=== PATIENT | female | born 2000 | race Caucasian/White ===

== ENCOUNTER 2021-10-24 06:43 | Inpatient (IN) | payer BC ==
[2021-10-24 07:08] LABS: Hemoglobin 14.3 g/dL (12.0-16.0); Mean Corpuscular HGB CONC 34.4 g/dL (32.0-36.0); Mean Corpuscular Hemoglobin 30.8 pg (25.0-35.0); Mean Corpuscular Volume 89.5 fL (78.0-98.0); Mean Platelet Volume 9.7 fL (7.4-10.4); Platelet Count 280 thou/uL (130-400); RBC Distribution Width 11.8 % (11.5-14.5); Red Blood Cell (RBC) Count 4.65 mill/uL (4.00-5.20)
[2021-10-24 07:22] LABS: MDiff Complete? YES
[2021-10-24 07:23] LABS: Band 11 % (5-11); Burr Cells SLIGHT = 2-5 cells (100X) (0-1/hpf); Lymphocytes 4 % (28-48); Monocytes 3 % (0-4); Neutrophil 82 % (31-61); Ovalocytes SLIGHT = 2-5 cells (100X) (0-1/hpf); Platelet Morphology Comment Appears Adequate; Polychromasia SLIGHT = 2-3 cells (100X) (0-2/hpf)
[2021-10-24] MEDS ORDERED: Ondansetron PF 4 MG/2 ML Vial ONE ×2 (07:25→10:05)
[2021-10-24 07:50] LABS: ALT (SGPT) 14 U/L (8-55); AST (SGOT) 29 U/L (5-34); Albumin 4.3 g/dL (3.5-5.0); Alkaline Phosphatase 109 U/L (40-100); Anion Gap 27 mmol/L (10-20); BUN (Urea Nitrogen) 22 mg/dL (7.0-18.7); Bilirubin, Total 0.8 mg/dL (0.2-1.2); Calc. Creatinine Clearance 0 mL/min (70-130); Calcium 9.9 mg/dL (7.8-10.44); Chloride 101 mmol/L (98-107); Globulin 4.1 g/dL (2.4-3.5); Glucose 420 mg/dL (70-105); Potassium 5.9 mmol/L (3.5-5.1); Protein, Total 8.4 g/dL (6.0-8.3); Sodium 131 mmol/L (136-145)
[2021-10-24 07:53] LABS: Carbon Dioxide 9 mmol/L (22-29)
[2021-10-24 08:22] LABS: BHCG - Serum Negative (NEGATIVE); Pregs Control Background? CLEAR/WHITE (CLR/WHITE); Pregs Control Bar Appear? YES (CONTROL BAR)
[2021-10-24] MEDS ORDERED: INSULIN REGULAR IN 0.9 % NACL 100 UNIT/100 ML BAG ONE (08:33)
[2021-10-24] MEDS ORDERED: Insulin Regular 300 UNITS/3 ML VIAL ONE (08:33)
[2021-10-24 08:58] LABS: CK (CPK) 58 U/L (29-168); Lipase 9 U/L (8-78)
[2021-10-24 09:08] LABS: Bilirubin Negative (Negative); Blood, Urine Negative (Negative); Clarity Clear (Clear); Glucose, Urine (Dipstick) Greater than 1000 mg/dL (Negative); Ketone, Urine Greater than 150 mg/dL (Negative); Leukocyte Negative Leu/uL (Negative); Nitrite Negative (Negative); Protein, Urine (Dipstick) 10 mg/dL (Neg-Trace); Specific Gravity, Urine 1.025 (1.002-1.036); Urobilinogen Normal mg/dL (Less than 2)
[2021-10-24] MEDS ORDERED: Dextrose 5 %-0.45 % NaCl 1,000 ML IV PRN (09:38)
[2021-10-24] MEDS ORDERED: Electrolyte Replacement Protocol 1 EACH IVPB PRN (09:38)
[2021-10-24] MEDS ORDERED: Sodium Chloride 0.9% 1,000 ML IV PRN ×4 (09:38)
[2021-10-24] MEDS ORDERED: NS 0.9% w/ 20 MEQ KCL 1,000 ML IV PRN ×2 (09:38)
[2021-10-24] MEDS ORDERED: Ondansetron PF 4 MG/2 ML Vial IVP SCH (10:00)
[2021-10-24] MEDS ORDERED: Pantoprazole 40 MG VIAL IVP SCH (10:00)
[2021-10-24] MEDS ORDERED: Ondansetron PF 4 MG/2 ML Vial IVP PRN (10:04)
[2021-10-24] MEDS ORDERED: Acetaminophen 325 MG TAB PO PRN (10:04)
[2021-10-24] MEDS ORDERED: Ondansetron ODT 4 MG TAB PO PRN (10:04)
[2021-10-24] MEDS ORDERED: Acetaminophen 650 MG Suppository PR PRN (10:04)
[2021-10-24] MEDS ORDERED: Pantoprazole 40 MG VIAL ONE (10:05)
[2021-10-24 10:15] LABS: Analyzer IN Cardio ER; Base Excess -21.1 mEq/L (-2.0 to +3.0); Calcium, Ionized (venous) 1.15 mmol/L (1.16-1.32); Chloride (VBG) 106 mmol/L (98-106); Hemoglobin (Hb) 14.4 g/dL (11.7-15.5); Potassium (VBG) 4.54 mmol/L (3.70-5.30); Sodium 134.7 mmol/L (133-146)
[2021-10-24 10:17] LABS: Actual Bicarbonate (HCO3v) 6 mEq/L (22-28); pH (venous) 7.12 (7.32-7.43)
[2021-10-24 10:34] LABS: BUN (Urea Nitrogen) 22 mg/dL (7.0-18.7); Calc. Creatinine Clearance 0 mL/min (70-130); Calcium 9.2 mg/dL (7.8-10.44); Chloride 107 mmol/L (98-107); Glucose 322 mg/dL (70-105); Potassium 4.5 mmol/L (3.5-5.1); Sodium 134 mmol/L (136-145)
[2021-10-24 10:38] LABS: Carbon Dioxide Less than 8 mmol/L (22-29)
[2021-10-24 11:32] LABS: SARS-CoV-2 NAA Rapid Test Not Detected (NotDetected)
[2021-10-24 11:40] VITALS: BMI 27.8
[2021-10-24] MEDS ORDERED: FLU VACC QS2021-22(6MOS UP)/PF 60 MCG/0.5 ML SYRINGE IM ONE (12:15)
[2021-10-24] MEDS ORDERED: Magnesium 2 GM/50 ML 2 GM in Premix Bag 1 BAG IVPB SCH (13:00)
[2021-10-24] MEDS: Ampicillin/Sulbactam 3 GM in Sodium Chloride 0.9% 100 ML IVPB SCH ×2 (13:15→17:38)
[2021-10-24 14:35] LABS: Anion Gap 14 mmol/L (10-20); BUN (Urea Nitrogen) 20 mg/dL (7.0-18.7); Calc. Creatinine Clearance 88 mL/min (70-130); Calcium 8.7 mg/dL (7.8-10.44); Carbon Dioxide 13 mmol/L (22-29); Chloride 113 mmol/L (98-107); Glucose 136 mg/dL (70-105); Potassium 4.6 mmol/L (3.5-5.1); Sodium 135 mmol/L (136-145)
[2021-10-24] MEDS ORDERED: Calcium Carbonate 500 MG ChewTAB PO PRN (16:59)
[2021-10-24 17:59] LABS: Anion Gap 17 mmol/L (10-20); BUN (Urea Nitrogen) 18 mg/dL (7.0-18.7); Calc. Creatinine Clearance 89 mL/min (70-130); Calcium 8.4 mg/dL (7.8-10.44); Carbon Dioxide 12 mmol/L (22-29); Chloride 112 mmol/L (98-107); Glucose 148 mg/dL (70-105); Potassium 4.8 mmol/L (3.5-5.1); Sodium 136 mmol/L (136-145)
[2021-10-24] MEDS: D5 1/2 NS w/20 mEq KCL 1,000 ML IV PRN (20:59)
[2021-10-24] MEDS: HUMULIN R 100 UNITS in Sodium Chloride 0.9% 100 ML IVPB SCH (21:00)
[2021-10-24] MEDS ORDERED: Cepastat Lozenges 1 LOZ PO PRN (21:21)
[2021-10-24] MEDS ORDERED: Chloraseptic Spray 180 ml Bottle PO PRN (21:37)
[2021-10-25] MEDS: D5 1/2 NS w/20 mEq KCL 1,000 ML IV PRN ×3 (01:02→23:18)
[2021-10-25] MEDS: Ampicillin/Sulbactam 3 GM in Sodium Chloride 0.9% 100 ML IVPB SCH ×2 (01:02→05:37)
[2021-10-25 04:07] LABS: #Eosinphils 0.1 thou/uL (0.0-0.7); #Lymphocytes 2.2 thou/uL (1.20-3.40); #Monocytes 1.2 thou/uL (0.11-0.59); %Basophils 0.1 % (0.0-1.0); %Eosinophils 0.7 % (0.0-10.0); %Lymphocytes 15.3 % (28.0-48.0); %Monocytes 8.1 % (0.0-4.0); %Neutrophils 75.9 % (31.0-61.0); Mean Corpuscular HGB CONC 33.4 g/dL (32.0-36.0); Mean Corpuscular Hemoglobin 29.5 pg (25.0-35.0); Mean Corpuscular Volume 88.5 fL (78.0-98.0); Mean Platelet Volume 9.2 fL (7.4-10.4); Platelet Count 239 thou/uL (130-400); RBC Distribution Width 11.9 % (11.5-14.5); Red Blood Cell (RBC) Count 4.07 mill/uL (4.00-5.20); White Blood Cell (WBC) Count 14.5 thou/uL (4.8-10.8)
[2021-10-25 04:46] LABS: Anion Gap 10 mmol/L (10-20); BUN (Urea Nitrogen) 11 mg/dL (7.0-18.7); Calc. Creatinine Clearance 110 mL/min (70-130); Calcium 7.8 mg/dL (7.8-10.44); Carbon Dioxide 17 mmol/L (22-29); Chloride 112 mmol/L (98-107); Glucose 156 mg/dL (70-105); Potassium 3.8 mmol/L (3.5-5.1); Sodium 135 mmol/L (136-145)
[2021-10-26] MEDS: HUMULIN R 100 UNITS in Sodium Chloride 0.9% 100 ML IVPB SCH (01:30)
[2021-10-26] MEDS: D5 1/2 NS w/20 mEq KCL 1,000 ML IV PRN (03:30)
[2021-10-26 06:18] LABS: Anion Gap 10 mmol/L (10-20); BUN (Urea Nitrogen) 4 mg/dL (7.0-18.7); Calc. Creatinine Clearance 131 mL/min (70-130); Calcium 7.9 mg/dL (7.8-10.44); Carbon Dioxide 21 mmol/L (22-29); Chloride 110 mmol/L (98-107); Glucose 127 mg/dL (70-105); Potassium 3.8 mmol/L (3.5-5.1); Sodium 137 mmol/L (136-145)
[2021-10-26 13:02] VITALS: TEMP 98.2
== END 2021-10-26 14:30 | disposition home or self-care (01) | DRG 638 ==
LOC: ERS 06:43 → IMCU/EMU 09:12
PROVIDERS: ADMIT Internal Medicine; ATTEND Internal Medicine
DX: E10.10 Type 1 diabetes mellitus with ketoacidosis without coma (principal); Z20.822 Contact with and (suspected) exposure to COVID-19; E87.1 Hypo-osmolality and hyponatremia; N17.9 Acute kidney failure, unspecified; J02.9 Acute pharyngitis, unspecified; E87.5 Hyperkalemia; Z96.41 Presence of insulin pump (external) (internal); F32.A Depression, unspecified; Z86.16 Personal history of COVID-19; Z28.21 Immunization not carried out because of patient refusal; Z79.4 Long term (current) use of insulin; Z79.899 Other long term (current) drug therapy
CPT/HCPCS: 36415; 36416; 71045; 80048; 80053; 81003; 82010; 82550; 82805; 83690; 83735; 84100; 84703; 85025; 96365; 96366; 96374; 96375; 96376; C9113; J0295; J1815; J2405; J3475; J3480; J3490; U0002